=== PATIENT | female | born 1985 | race American Indian/Alaskan Native ===

== ENCOUNTER 2018-03-02 12:41 | Emergency (ER) | payer SELFPAY ==
--- NOTE | 2018-03-02 13:20 | Emergency Department Report ---
Blank Doc - Documentation Documentation: Patient is 32 years old female with past medical history of peptic ulcer. Patient presented to the ER complaining of shortness of breath for a week, worse since last night. 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 Patient looks more lethargic and obtunded. Lung is clear on both sides. Differential diagnoses include cardiomyopathy versus pneumonitis. Patient will need further workup in main ED.
[2018-03-02 13:47] VITALS: BP 155/95
[2018-03-02 14:25] LABS: Basophils % (Auto) 0.3 % (0.0-1.8); Eosinophils % (Auto) 0.1 % (0.0-4.3); Hematocrit 35.8 % (30.3-42.9); Hemoglobin 11.6 gm/dl (10.1-14.3); Lymphocytes # (Auto) 0.8 K/mm3 (1.2-5.4); Lymphocytes % (Auto) 9.9 % (13.4-35.0); Mean Corpuscular HGB Conc 32 % (30-34); Mean Corpuscular Hemoglobin 26 pg (28-32); Mean Corpuscular Volume 80 fl (79-97); Mean Platelet Volume 9.5 fl (6-12); Monocytes # (Auto) 0.4 K/mm3 (0.0-0.8); Monocytes % (Auto) 4.7 % (0.0-7.3); Platelet Count 238 K/mm3 (140-440); Red Cell Distribution Width 14.5 % (13.2-15.2)
[2018-03-02 14:28] LABS: INR 0.96 (0.87-1.13); Partial Thromboplastin Time 27.3 Sec. (24.2-36.6)
[2018-03-02 14:41] LABS: Alanine Aminotransferase 9 units/L (7-56); Albumin 4.8 g/dL (3.9-5); BUN/Creatinine Ratio 8; Blood Urea Nitrogen 5 mg/dL (7-17); Calcium 9.7 mg/dL (8.4-10.2); Hemolysis Index 1; Lipase 28 units/L (13-60)
== END 2018-03-02 16:35 | disposition left against medical advice (07) ==
LOC: ED 12:41
DX: R06.02 Shortness of breath (principal); Z53.21 Procedure and treatment not carried out due to patient leaving prior to being seen by health care provider
CPT/HCPCS: 36415; 80053; 83690; 83880; 84484; 85025; 85379; 85610; 85730